=== PATIENT | female | born 1955 | race American Indian/Alaskan Native ===

== ENCOUNTER 2018-11-23 09:29 | Outpatient (CLI) | payer MEDICARE | END 2018-11-23 09:30 | disposition home or self-care (01) | LOC: C.PAT 09:29 | DX: I25.10 Atherosclerotic heart disease of native coronary artery without angina pectoris (principal) ==

== ENCOUNTER 2018-11-24 06:08 | Day surgery (SDC) | payer MEDICARE ==
[2018-11-23 09:44] VITALS: BMI 45.1
[2018-11-24] MEDS ORDERED: Verapamil 2 ML ONE (09:40)
[2018-11-24] MEDS ORDERED: Nitroglycerin 50mg in D5W 50 MG/250 ML BOTTLE IV ONE (09:41)
[2018-11-24] MEDS ORDERED: Lidocaine PF 2% (5 ml) Inj (For Cardiac Arrhy) ONE (09:41)
[2018-11-24] MEDS ORDERED: Midazolam 2 MG/2 ML VIAL ONE (09:42)
[2018-11-24] MEDS ORDERED: Iodixanol 320 MG/ML 100 ML BOTTLE IV ONE (09:44)
--- NOTE | 2018-11-24 19:43 | CARDCATH ---
PROCEDURE DATE: 11/24/2018 PROCEDURES: 1. Left heart catheterization. 2. Coronary angiogram. REFERRING PHYSICIAN: Amarjit Adan MD PERFORMING PHYSICIAN: Jef Ellis MD CLINICAL INDICATIONS: 1. Abnormal stress test. 2. Hypertension. 3. Hyperlipidemia. 4. Preop cardiac risk assessment. DESCRIPTION OF PROCEDURE: After informed consent, the patient was prepped and draped in the usual sterile fashion. A 2% Lidocaine was given in the right wrist for local anesthesia. Using micropuncture technique, a 6-Estonian sheath was introduced into right radial artery. A JR4 6-Estonian diagnostic catheter was engaged into the right coronary artery. Contrast injected and right coronary angiogram was done. Then, the catheter was exchanged to 6-E[place]ian H[place] catheter. Catheter was engaged into left main coronary artery. Contrast injected and left coronary angiogram was done. Then, the catheter was exchanged to pigtail catheter. The catheter inserted into the left ventricle. LVEDP measured. Contrast injected and LV angiogram was done. Then the catheter was pulled back, gradient across the aortic valve was measured. The patient tolerated the procedure well. Postprocedure, Terumo radial band applied to right wrist with excellent hemostasis. Radiological supervision and radiological interpretation of the coronary imaging were done. FINDINGS: 1. Left main coronary artery is patent. 2. Left anterior descending and diagonal branches are patent. 3. Left circumflex coronary artery is patent. OM1 artery is patent. OM2 has proximal 60% stenosis. 4. Right coronary artery is dominant. Mid right coronary artery has 30% stenosis. Proximal right coronary artery has 20% stenosis. The patient's right coronary is dominant. 5. Left ventricular ejection fraction is approximately 70%. EDP is 20. No gradient across the aortic valve. IMPRESSION: 1. Nonobstructive coronaries. 2. Normal left ventricular systolic function. Jef Ellis MD
== END 2018-11-24 16:47 | disposition home health service (06) ==
LOC: C.CATHLAB 06:08
PROVIDERS: ATTEND Internal Medicine Cardiovascular Disease
DX: I25.10 Atherosclerotic heart disease of native coronary artery without angina pectoris (principal); I10 Essential (primary) hypertension; E78.5 Hyperlipidemia, unspecified
CPT/HCPCS: J1644; J2250; J3010; Q9967